=== PATIENT | male | born 1990 | race Hispanic/Latino ===

== ENCOUNTER 2018-04-05 00:38 | Emergency (ER) | payer SELFPAY ==
[2018-04-05] MEDS ORDERED: Tdap Vaccine 0.5 ml Vial (10-64 yrs) IM ONE ×2 (01:25→03:20)
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
[2018-04-05 06:35] VITALS: TEMP 98.2; O2SAT 96
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
[2018-04-05 13:22] VITALS: BP 130/80; PULSE 69; RESP 18
--- NOTE | 2018-04-05 15:42 | RAD ---
Date of service: 04/05/2018 PROCEDURE: Radiographs of the Left Shoulder HISTORY: shoulder pain with dec ROM after fall COMPARISON: No prior. FINDINGS: BONES: Normal. No fracture. JOINTS: Questionable minor widening of the left acromioclavicular joint. No evidence of significant osteoarthritis. SOFT TISSUES: Normal. OTHER FINDINGS: None. IMPRESSION: No evidence of acute displaced fracture nor dislocation Questionable minor widening left acromioclavicular joint; consider follow-up comparison view of the right acromioclavicular joint. Note this report was placed in [facility] review folder for follow up.
--- NOTE | 2018-04-05 15:44 | RAD ---
Date of service: 04/05/2018 PROCEDURE: Radiographs of the right elbow. HISTORY: Right elbow pain after fall COMPARISON: No prior. FINDINGS: BONES: Normal. No fracture. Very tiny enthesophyte seen arising from the posterior olecranon process JOINTS: Normal. No osteoarthritis. SOFT TISSUES: Normal. JOINT EFFUSION: None. OTHER FINDINGS: None. IMPRESSION: No evidence of acute displaced fracture nor dislocation
--- NOTE | 2018-04-05 15:50 | RAD ---
Date of service: 04/05/2018 PROCEDURE: Radiographs of the Sacrum and Coccyx HISTORY: fall with sacral pain COMPARISON: None available. TECHNIQUE: Frontal and lateral views of the sacrum and coccyx FINDINGS: BONES: Evaluation of the sacrum is somewhat limited due to overlying bowel related type artifact. No definitive radiographic evidence of acute displaced fracture however consider follow-up CT scan of the sacrum for further evaluation as CT scan is much more sensitive for detecting subtle fractures that often times can be missed on plain film radiographs. SACROILIAC JOINTS: .SI joints appear intact. OTHER FINDINGS: None. IMPRESSION: Limited evaluation due to overlying bowel related artifact. No definitive radiographic evidence of acute displaced fracture however consider follow-up CT scan of the sacrum for further evaluation as CT scan is much more sensitive for detecting subtle fractures that often times can be missed on plain film radiographs.
== END 2018-04-05 13:22 | disposition home or self-care (01) ==
LOC: H.ER 00:38
DX: S09.90XA Unspecified injury of head, initial encounter (principal); S01.01XA Laceration without foreign body of scalp, initial encounter; X99.8XXA Assault by other sharp object, initial encounter; Z23 Encounter for immunization